=== PATIENT | female | born 1970 | race Caucasian/White ===

== ENCOUNTER 2020-01-18 05:28 | Day surgery (SDC) | payer MEDICAID ==
[2020-01-15 10:26] LABS: CLARITY,URINE CLEAR (Clear); COLOR,URINE YELLOW (Yellow); GLUCOSE, URINE NEGATIVE (Neg); KETONES,URINE TRACE mg/dl (Neg); LEUKOCYTE ESTERASE ,URINE NEGATIVE (Neg); NITRITES, URINE NEGATIVE (Neg); OCCULT BLOOD,URINE NEGATIVE (Neg); PH,URINE 6.5 (4.8-8.0); PROTEIN,URINE NEGATIVE (Neg); UROBILINOGEN,URINE 0.2 E.U/dL (0.2-1.0)
[2020-01-15 10:27] LABS: BASOPHILS % (AUTO) 0.5 % (0-1); EOSINOPHILS # (AUTO) 0.1 X10'3 (0-0.9); EOSINOPHILS % (AUTO) 0.9 % (0-6); LYMPHOCYTES # (AUTO) 1.2 X10'3 (1.1-4.8); LYMPHOCYTES % (AUTO) 17.7 % (21-51); MEAN CORPUSCULAR HEMOGLOBIN 32.5 PG (27.0-31.0); MEAN CORPUSCULAR HGB CONC 33.6 g/dL (33.0-36.5); MEAN CORPUSCULAR VOLUME 96.7 FL (78-98); MEAN PLATELET VOLUME 6.6 FL (7.4-10.4); MONOCYTES # (AUTO) 0.3 X10'3 (0-0.9); MONOCYTES % (AUTO) 4.3 % (2-12); NEUTROPHILS # (AUTO) 5.1 X10'3 (1.8-7.7); NEUTROPHILS % (AUTO) 76.6 % (42-75); PRE OP HEMOGLOBIN 14.8 g/dL (12.0-16.0); PRE OP PLATELET COUNT 299 X10'3 (140-440); RED BLOOD COUNT 4.55 X10'6 (4.20-5.60); RED CELL DISTRIBUTION WIDTH 13.3 % (11.5-14.5)
[2020-01-15 10:31] LABS: UA COLLECTION TYPE CLN CATCH MIDSTREAM
[2020-01-15 10:46] LABS: ALBUMIN 4.2 G/DL (3.4-5.0); ALBUMIN/GLOBULIN RATIO 1.3 (1.1-1.5); ALKALINE PHOSPHATASE 104 IU/L (46-116); BLOOD UREA NITROGEN 13 MG/DL (7-18); BUN/CREATININE RATIO 16.3 (6.6-38.0); CHLORIDE 101 MMOL/L (99-107); PRE OP ALT 23 U/L (30-65); PRE OP ANION GAP 9 (8-16); PRE OP AST 13 U/L (10-37); PRE OP BILIRUB, TOTAL 0.3 MG/DL (0.0-1.0); PRE OP GLUCOSE 97 MG/DL (70-104); PRE OP POTASSIUM 4.1 MMOL/L (3.4-5.1); PRE OP SODIUM 136 MMOL/L (135-145); TOTAL CARBON DIOXIDE 25.6 MMOL/L (24-32); TOTAL PROTEIN 7.4 G/DL (6.4-8.2); eGFR 76 ML/MIN
[~2020-01-18] VITALS: Ht 170.2 cm; Wt 83.0 kg
[~2020-01-18 05:28] MED LIST: ALPR1TAB2 PO; BUTA1CAP17 PO; CYCL-1 PO; PROM12.512 PO; TEMA30CA PO; ringers solution, lacted 1,000 ML IV SCH
[2020-01-18] MEDS ORDERED: famotidine 20mg tablet PO ONE (05:30)
[2020-01-18] MEDS ORDERED: cefazolin/dext.iso 2gm/50ml 50 ML IV ONE (06:00)
[2020-01-18 06:26] VITALS: BP 137/94
[2020-01-18] MEDS ORDERED: cloNIDine hcl/PF 100mcg/ml inj ONE (06:48)
[2020-01-18] MEDS ORDERED: propofol inj 20 ML IV ONE (06:49)
[2020-01-18] MEDS ORDERED: ROPIVAcaine 0.5% (5mg/ml) 30ml vial ONE (06:49)
[2020-01-18] MEDS ORDERED: midazolam 2 mg/2 ml injection ONE (06:50)
[2020-01-18] MEDS ORDERED: fentaNYL/PF 50MCG/1 ML 2ML syringe ONE (06:50)
[2020-01-18] MEDS ORDERED: sevoflurane 250ml liquid IH ONE (07:01)
[2020-01-18] MEDS ORDERED: ringers solution, lacted 1,000 ML IV SCH (07:02)
[2020-01-18] MEDS ORDERED: ondansetron/PF 4mg/2ml inj IV PRN (07:05)
[2020-01-18] MEDS ORDERED: meperidine/PF 25mg/ml syringe IV PRN ×3 (07:05)
[2020-01-18] MEDS ORDERED: proCHLORperazine 10 MG/2 ml inj IV PRN (07:05)
[2020-01-18] MEDS ORDERED: morphine 2 MG/ML inj. syringe IV PRN (07:05)
[2020-01-18] MEDS ORDERED: morphine 4 MG/ML inj SYRINge IV PRN (07:05)
[2020-01-18] MEDS ORDERED: dexamethasone sod phosphate 4mg/ml inj. ONE (08:25)
[2020-01-18] MEDS ORDERED: ondansetron/PF 4mg/2ml inj ONE (08:25)
[2020-01-18] MEDS ORDERED: bacitracin 15gm ointment TP ONE (08:41)
[2020-01-18 09:04] VITALS: BP 118/76
--- NOTE | 2020-01-18 09:04 | NUR ---
ARRIVED IN PACU VIA GURNEY FROM WADE Vickesr IN ATTENDANCE. VS ROSARIO ON ARRIVAL. PT SLEEPY BUT TAKING AND COMFORTABLE. REPORT RECEIVED.
[2020-01-18 09:14] VITALS: BP 132/82
[2020-01-18 09:16] VITALS: BP 122/77
[2020-01-18 09:26] VITALS: BP 131/90
[2020-01-18 09:36] VITALS: BP 128/88
--- NOTE | 2020-01-18 09:46 | NUR ---
AWAKE, DRANK COFFEE. PT GIVEN CRUTCHES AND SHE STATES SHE KNOWS HOW TO USE THEM. REVIEWED DISCHARGE WITH DAUGHTER OVER PHONE. TO CAR VIA W/C ASSISTED BY MA WITHOUT INCIDENT
== END 2020-01-18 09:44 | disposition home or self-care (01) ==
LOC: PAS 05:28
PROVIDERS: ATTEND Podiatrist Foot & Ankle Surgery
DX: M25.572 Pain in left ankle and joints of left foot (principal); M25.372 Other instability, left ankle; M65.872 Other synovitis and tenosynovitis, left ankle and foot; G89.18 Other acute postprocedural pain; Z20.828 Contact with and (suspected) exposure to other viral communicable diseases
CPT/HCPCS: 27695; 29895; 36415; 64450; 76942; 80053; 81003; 82948; 85025; 87635; 93005; A6223; C1713; J0735; J1100; J2250; J2405; J2704; J3010; A4618; A6253; A6449; A7000; J2795; J7120

== ENCOUNTER 2023-09-10 19:06 | Emergency (ER) | payer MEDICAID ==
[~2023-09-10] VITALS: Ht 170.2 cm; Wt 95.0 kg
[~2023-09-10 19:06] MED LIST changes: -ringers solution, lacted 1,000 ML IV SCH
[2023-09-10] MEDS: cyclobenzaprine 10mg tablet PO ONE (20:57)
[2023-09-10] MEDS ORDERED: HYDR-3965 PO (21:54)
[2023-09-10] MEDS: HYDROcodone/acetaminophen 10/325mg tab PO ONE (21:54)
[2023-09-10 22:01] VITALS: BP 133/89; PULSE 86; RESP 16; TEMP 97.9; O2SAT 95
== END 2023-09-10 22:02 | disposition home or self-care (01) ==
LOC: ER 19:07
DX: S30.0XXA Contusion of lower back and pelvis, initial encounter (principal); Z88.8 Allergy status to other drugs, medicaments and biological substances; Z79.899 Other long term (current) drug therapy; W18.39XA Other fall on same level, initial encounter; Y93.89 Activity, other specified; Y92.89 Other specified places as the place of occurrence of the external cause; Y99.8 Other external cause status
CPT/HCPCS: 72131; 99284